=== PATIENT | male | born 1995 | race Hispanic/Latino ===

== ENCOUNTER → 2018-11-16 | Emergency (ER) | payer SELFPAY ==
[~2018-11-16] MED LIST: Adacel (T-DAP) 0.5 ML SYRINGE ONE; Lidocaine 1% w/Epinephrine 1:100K 20 ML VIAL ONE
[2018-11-16 21:37] LABS: #Basophils 0.1 thou/uL (0.0-0.2); #Eosinphils 0.1 thou/uL (0.0-0.7); #Monocytes 0.4 thou/uL (0.11-0.59); #Neutrophils 6.2 thou/uL (1.40-6.50); %Basophils 0.6 % (0.0-1.0); %Eosinophils 1.1 % (0.0-10.0); %Lymphocytes 22.9 % (21.0-51.0); %Monocytes 4.9 % (0.0-10.0); %Neutrophils 70.5 % (42.0-75.0); Hemoglobin 14.6 g/dL (14.0-18.0); Mean Corpuscular HGB CONC 33.9 g/dL (32.0-36.0); Mean Corpuscular Hemoglobin 31.6 pg (27.0-31.0); Mean Corpuscular Volume 93.2 fL (78.0-98.0); Mean Platelet Volume 7.1 fL (7.4-10.4); Platelet Count 297 thou/uL (130-400); RBC Distribution Width 11.4 % (11.5-14.5); Red Blood Cell (RBC) Count 4.61 mill/uL (4.70-6.10); White Blood Cell (WBC) Count 8.8 thou/uL (4.8-10.8)
--- NOTE | 2018-11-16 21:44 | RAD ---
EXAM: 2 views of the left forearm HISTORY: Multiple lacerations to the left wrist COMPARISON: None FINDINGS: There is no evidence of acute fracture or dislocation. Anterior soft tissue swelling is see n. No degenerative changes are seen in the wrist or elbow. No radiopaque foreign body is seen. IMPRESSION: No evidence of acute osseous abnormality.
[2018-11-16 22:01] LABS: ALT (SGPT) 17 U/L (8-55); AST (SGOT) 17 U/L (5-34); Acetaminophen Less than 6.0 mcg/mL (10.0-30.0); Albumin 4.7 g/dL (3.5-5.0); Alcohol 175 mg/dL (Less than 10); Alkaline Phosphatase 92 U/L (40-150); Anion Gap 18 mmol/L (10-20); BUN (Urea Nitrogen) 14 mg/dL (8.9-20.6); Bilirubin, Total 0.3 mg/dL (0.2-1.2); Calc. Creatinine Clearance 0 mL/min (70-130); Calcium 9.1 mg/dL (7.8-10.44); Carbon Dioxide 21 mmol/L (22-29); Chloride 107 mmol/L (98-107); Estimated GFR-MDRD Greater than 90; Globulin 2.9 g/dL (2.4-3.5); Glucose 93 mg/dL (70-105); Potassium 3.6 mmol/L (3.5-5.1); Protein, Total 7.6 g/dL (6.0-8.3); Salicylate Less than 8.0 mg/dL (15.0-30.0); Sodium 142 mmol/L (136-145)
[2018-11-16 22:04] LABS: Bilirubin Negative (Negative); Blood, Urine Negative (Negative); Clarity CLEAR (Clear); Glucose, Urine (Dipstick) Negative (Negative); Leukocyte Negative (Negative); Nitrite Negative (Negative); Protein, Urine (Dipstick) Negative (Neg-Trace); Specific Gravity, Urine 1.006 (1.002-1.036); Urobilinogen 0.2 mg/dL (0.2-1.0)
[2018-11-16 22:15] LABS: Amphetamine Not Detected (NotDetected); Barbiturates Screen Not Detected (NotDetected); Benzodiazepine Screen Not Detected (NotDetected); Cocaine Metabolite Screen Not Detected (NotDetected); Medtox Control Line Valid? VALID (VALID); Medtox Reader # READER 4; Methadone Not Detected (NotDetected); Methamphetamine Not Detected (NotDetected); Opiate Screen Not Detected (NotDetected); Oxycodone Screen Not Detected (NotDetected); Phencyclidine (PCP) Not Detected (NotDetected); THC/Cannabinoid Screen Not Detected (NotDetected); Tricyclic Screen Not Detected (NotDetected)
== END ==
LOC: ERS 20:59
DX: S51.812A Laceration without foreign body of left forearm, initial encounter (principal); F31.9 Bipolar disorder, unspecified; Z79.899 Other long term (current) drug therapy; X78.8XXA Intentional self-harm by other sharp object, initial encounter
CPT/HCPCS: 12002; 36415; 80053; 80306; 80307; 81003; 84443; 85025; 90471; 90715; 96365; J0690; J2001